=== PATIENT | male | born 1995 | race Caucasian/White ===

== ENCOUNTER 2017-01-12 02:17 | Emergency (ER) | payer OTHER ==
[2017-01-12 05:11] LABS: Albumin 4.7 g/dL (3.2-5.2); BUN/Creatinine Ratio 13.7 (8-20); EGFR African American 119.7 (>60); EGFR Non-African American 93.1 (>60); Globulin 3.3 g/dL (2-4); Potassium 3.9 mmol/L (3.5-5.0); Total Bilirubin 0.6 mg/dL (0.2-1.0)
[2017-01-12 05:12] LABS: Hematocrit 46 % (42-52); Hemoglobin 15.4 g/dl (14.0-18.0); Mean Corpuscular HGB Conc 33 g/dl (31-36); Mean Corpuscular Hemoglobin 29 pg (27-31); Mean Corpuscular Volume 88 fL (80-94); Mean Platelet Volume 8 um3 (7.4-10.4); Red Blood Count 5.25 10^6/ul (4.0-5.4); Red Cell Distribution Width 13 % (10.5-15); White Blood Count 11.4 10^3/ul (3.5-10.8)
[2017-01-12 05:13] LABS: Benzodiazepine Urine Screen None Detected (None Detect)
[2017-01-12 06:34] VITALS: BP 105/48
--- NOTE | 2017-01-12 08:04 | RAD ---
Indication: Head injury, fall and syncope. CT of the brain was performed without IV contrast. Ventricular structures are midline. No midline shift is noted. The extra-axial spaces are unremarkable. There is no evidence of intracranial mass or hemorrhage. No other high or low density lesions are identified. Mastoid air cells and paranasal sinuses are otherwise unremarkable. IMPRESSION: No intracranial mass or hemorrhage is noted.
--- NOTE | 2017-01-12 08:05 | RAD ---
Indication: Syncope, fall and neck injury. CT of the cervical spine was obtained in the axial plane. Sagittal and coronal reconstructed images were obtained. The skull base demonstrates no evidence of fracture. Mastoid air cells are well aerated. The C1 ring is intact. The remainder of the vertebral bodies appear normal in height and alignment. No compression fracture is noted. No evidence of disc protrusion is noted where visualized. Spinal canal is intact. No evidence of facet malalignment is noted. The lung apices are grossly unremarkable. IMPRESSION: NO FRACTURE OF THE CERVICAL SPINE IS NOTED.
--- NOTE | 2017-01-12 08:16 | RAD ---
Indication: Bilateral shoulder pain. The views of left shoulder and 3 views right shoulder are reviewed. The right shoulder demonstrates no fracture or dislocation. No other bone or joint abnormality is identified. The left shoulder demonstrates no fracture or dislocation. No other bone or joint abnormalities identified. No definite pneumothorax is noted. IMPRESSION: Unremarkable bilateral shoulders.
--- NOTE | 2017-01-17 14:00 | ED ---
Yousif Arevalo Janilya, scribed for Macy Gaitan MD on 01/12/17 at 0414 . Syncope/Near Syncope - HPI Summary HPI Summary: A 21 y/[facility] w/ a gradual onset of syncope that happened today at approximately 0200. Pt states he blacked out at maternal care at [facility] earlier today. He says it was most likely due to not eating. He states he hit his head, now reports RODRIGUEZ of 1/10 severity. He also reports shoulder and neck pain. Pt denies sore throat and having had a seizure during his syncopal episode. Episode was witnessed. Pt feels back to his usual self now. - History Of Current Complaint Chief Complaint: EDDizziness Hx Obtained From: Patient Onset/Duration: Gradual Onset, Lasting Hours, Still Present Timing: Constant Context: Witnessed Activity At Onset: At Rest Associated Head Trauma: Yes Aggravating Factor(s): Nothing Alleviating Factor(s): Nothing Associated Signs And Symptoms: Negative Frequency: Episodes x___ - 1 - Risk Factors Cardiac Risk Factors: Negative Dysrhythmia Risk Factors: Negative Risk Factor(s): Negative - Allergies/Home Medications Allergies/Adverse Reactions: Allergies Allergy/AdvReac Type Severity Reaction Status Date / Time No Known Allergies Allergy Verified 01/12/17 02:34 PMH/Surg Hx/FS Hx/Imm Hx Previously Healthy: Yes Endocrine/Hematology History: Denies: Hx Blood Disorders - Immunization History Date of Tetanus Vaccine: utd Date of Influenza Vaccine: none Infectious Disease History: No Infectious Disease History: Denies: Traveled Outside the [place] in Last 30 Days - Family History Known Family History: Positive: Other - seizures Negative: Cardiac Disease, Hypertension, Diabetes - Social History Alcohol Use: None Substance Use Type: Reports: Marijuana Substance Use Comment - Amount & Last Used: daily - couple joints a day Smoking Status (MU): Light Every Day Tobacco Smoker Review of Systems Constitutional: Negative Eyes: Negative Negative: Sore Throat Cardiovascular: Negative Respiratory: Negative Gastrointestinal: Negative Positive: Arthralgia - shoulder and neck pain, Myalgia - shoulder and neck pain Positive: Headache, Syncope All Other Systems Reviewed And Are Negative: Yes Physical Exam Triage Information Reviewed: Yes Vital Signs On Initial Exam: Initial Vitals Temp Pulse Resp BP Pulse Ox 96.7 F 57 18 137/65 100 01/12/17 02:26 01/12/17 02:26 01/12/17 02:26 01/12/17 02:26 01/12/17 02:26 Vital Signs Reviewed: Yes Appearance: Positive: Well-Appearing, Well-Nourished, Pain Distress Skin: Positive: Warm, Skin Color Reflects Adequate Perfusion, Dry Head/Face: Positive: Normal Head/Face Inspection Eyes: Positive: EOMI, JESI, Conjunctiva Clear ENT: Positive: Normal ENT inspection, Hearing grossly normal, Pharynx normal, TMs normal. Negative: Muffled/hoarse voice Neck: Positive: Supple, Nontender Respiratory/Lung Sounds: Positive: Clear to Auscultation, Breath Sounds Present Cardiovascular: Positive: RRR, Pulses are Symmetrical in both Upper and Lower Extremities. Negative: Murmur Abdomen Description: Positive: Nontender, Soft Bowel Sounds: Positive: Present Musculoskeletal: Positive: Strength/ROM Intact. Negative: Edema Left, Edema Right Neurological: Positive: Sensory/Motor Intact, Alert, Oriented to Person Place, Time. Negative: Facial Droop, Focal Deficit @, Slurred Speech Psychiatric: Positive: Affect/Mood Appropriate - Selam Coma Scale Coma Scale Total: 15 Diagnostics - Vital Signs Vital Signs Temp Pulse Resp BP Pulse Ox 01/12/17 02:33 96.7 F 57 18 137/65 100 01/12/17 02:26 96.7 F 57 18 137/65 100 - Laboratory Result Diagrams: 01/12/17 04:31 01/12/17 04:31 Lab Statement: Any lab studies that have been ordered have been reviewed, and results considered in the medical decision making process. - CT brain CT Interpretation: No Acute Changes - Normal brain. No acute intracranial abnormality. No hemorrhage. Osseous structures are intact. CT Interpretation Completed By: Radiologist cervical spine CT Interpretation: No Acute Changes - Negative for cervical fracture or malalignment CT Interpretation Completed By: Radiologist Course/Dx - Diagnoses Provider Diagnoses: Head injury, Fall Discharge - Discharge Plan Condition: Stable Disposition: HOME Patient Education Materials: Head Injury (ED), Fall Prevention (ED), Syncope ( ED) Referrals: Anthony Alvarez MD [Primary Care Provider] - 2 Days Additional Instructions: Your lab tests and CT of the brain and cervical spine were normal tonight. Please follow up with your primary care provider and return to the ER for any worsening symptoms. The documentation as recorded by the scribe, Baizack,Janilya accurately reflects the service I personally performed and the decisions made by , Macy Gaitan MD.
== END 2017-01-12 06:33 | disposition home or self-care (01) ==
LOC: ED 02:17
DX: S09.90XA Unspecified injury of head, initial encounter (principal); M25.519 Pain in unspecified shoulder; M54.2 Cervicalgia; R51 Headache; R55 Syncope and collapse; F17.210 Nicotine dependence, cigarettes, uncomplicated; W19.XXXA Unspecified fall, initial encounter; Y93.9 Activity, unspecified; Y92.9 Unspecified place or not applicable
CPT/HCPCS: 36415; 70450; 72125; 80053; 80307; 85025; 99282